=== PATIENT | male | born 1950 | race Caucasian/White ===

== ENCOUNTER 2017-10-08 08:54 | Day surgery (SDC) | payer OTHER ==
[2017-10-08] MEDS ORDERED: MIDAZOLAM 1 MG/ML 2 ML INJ ×2 (10:52→10:53)
[2017-10-08] MEDS ORDERED: FENTAnyl 50 MCG/ML VIAL (10:53)
== END 2017-10-08 11:31 | disposition home or self-care (01) ==
LOC: GIL 08:54
DX: Z12.11 Encounter for screening for malignant neoplasm of colon (principal); K64.4 Residual hemorrhoidal skin tags
CPT/HCPCS: 45378